=== PATIENT | male | born 1970 ===

== ENCOUNTER 2018-01-30 12:41 | Emergency (ER) | payer BC ==
--- NOTE | 2018-01-30 13:44 | RAD ---
PROCEDURE: Radiographs of the left great toe. TECHNIQUE:: AP radiograph of the left foot, with oblique and lateral view of the left great toe. COMPARISON: None. FINDINGS: BONES: Three views of the left great toe were performed for pain. No fracture is seen. No dislocation of the phalanges is noted. No erosions are noted. Minimal hallux valgus deformity is seen. There may be some mild nonspecific soft tissue swelling. No soft tissue calcification is identified. Remainder of the visualized bones are intact. JOINTS: Unremarkable. SOFT TISSUES: Mild soft tissue swelling. OTHER FINDINGS: None. IMPRESSION: No plain film evidence of fracture or inflammatory arthritis. No soft tissue tophus appreciated.
--- NOTE | 2018-01-30 13:52 | ED PDOC ---
Lower Extremity Pain/Injury Time Seen by Provider: 01/30/18 13:05 Chief Complaint (Nursing): Lower Extremity Problem/Injury Chief Complaint (Provider): Left great toe pain History Per: Patient History/Exam Limitations: no limitations Onset/Duration Of Symptoms: Days (x2) Additional Complaint(s): Mckinley Casiano, a 47 year old male with past medical history of testicular cancer and diabetes, presents to the ED with left great toe pain onset 2 day. Patient states he woke up with acute pain and took celebrex last night which resulted in temporary significant pain improvement but now continues to have pain which prompted the ED visit. He denies trauma to foot, history of gout, fever, chills or night sweats. No further medical complaints. Past Medical History Reviewed: Historical Data, Nursing Documentation, Vital Signs Vital Signs: Last Vital Signs Temp 98.3 F 01/30/18 12:48 Pulse 91 H 01/30/18 12:48 Resp 16 01/30/18 12:48 BP 133/90 01/30/18 12:48 Pulse Ox 96 01/30/18 12:48 - Medical History PMH: Diabetes Denies: CAD, HTN, Hyperlipidemia Other PMH: testicular cancer - Family History Family History: States: Other - Social History Current smoker - smoking cessation education provided: No Alcohol: Occasional Drugs: Denies - Home Medications Home Medications: Ambulatory Orders Medication Instructions Recorded Indomethacin 50 mg PO TID PRN 5 Days capsule 01/30/18 - Allergies Allergies/Adverse Reactions: Allergies Allergy/AdvReac Type Severity Reaction Status Date / Time No Known Allergies Allergy Verified 01/30/18 12:47 Review of Systems ROS Statement: Except As Marked, All Systems Reviewed And Found Negative Constitutional: Negative for: Fever, Chills, Sweats Musculoskeletal: Positive for: Foot Pain (left great toe) Physical Exam - Reviewed Nursing Documentation Reviewed: Yes Vital Signs Reviewed: Yes - Physical Exam Appears: Positive for: Well, Non-toxic, Uncomfortable Head Exam: Positive for: ATRAUMATIC, NORMAL INSPECTION, NORMOCEPHALIC Cardiovascular/Chest: Positive for: Regular Rate, Rhythm Respiratory: Positive for: CNT, Normal Breath Sounds Gastrointestinal/Abdominal: Positive for: Normal Exam, Soft Extremity: Positive for: Normal ROM (antonia flection and extension of toes and ankle bilateral), Other (left foot has mild erythema and edema at left great toe to medial left foot with significant pain with lighth palpation to left great toe, no ulceration or open lesions noted, no discharge or fluctuance) Neurologic/Psych: Positive for: Alert, Oriented - Laboratory Results Result Diagrams: 01/30/18 14:30 01/30/18 14:30 - ECG O2 Sat by Pulse Oximetry: 96 (RA) Medical Decision Making Medical Decision Making: Time: 13:05 Initial Impression: Initial Plan: --CMP --Uric acid --Podiatry consult --CBC w/ differential --Ibuprofen 600 mg PO --Xray left foot great toe time; 13:40 left foot xray IMPRESSION: No plain film evidence of fracture or inflammatory arthritis. No soft tissue tophus appreciated. Case d/w podiatry who recommends f/u in clinic within the next week as indicated Scribe Attestation: Documented by Alice Hemphill, acting as a scribe for Yashira Roberts PA-C. Provider Scribe Attestation: All medical record entries made by the Scribe were at my direction and personally dictated by me. I have reviewed the chart and agree that the record accurately reflects my personal performance of the history, physical exam, medical decision making, and the department course for this patient. I have also personally directed, reviewed, and agree with the discharge instructions and disposition. Disposition - Clinical Impression Clinical Impression: Gout attack - Patient ED Disposition Is Patient to be Admitted: No Counseled Patient/Family Regarding: Studies Performed, Diagnosis, Need For Followup, Rx Given - Disposition Referrals: Arslan Hernandez MD [Family Provider] - Disposition: Routine/Home Disposition Time: 15:45 Condition: STABLE Additional Instructions: Take Indomethacin as needed for the next few days until pain is tolerable. F/u in podiatry clinic Prescriptions: Indomethacin 50 mg PO TID PRN 5 Days capsule PRN Reason: Pain, Moderate (4-7) Instructions: Gout (DC) Forms: [facility] ([place]ian), [facility] ED School/Work Excuse Print Language: BRITISH
[2018-01-30 14:41] LABS: BASO % 0.6 % (0.0-2.0); EOS # 0.2 K/uL (0.0-0.7); EOS % 3.7 % (0.0-4.0); HEMOGLOBIN 15.5 g/dL (12.0-18.0); LYMPH # 1.6 K/uL (1.0-4.3); MEAN CELL VOLUME 83.7 fl (80.0-94.0); MEAN CORPUSCULAR HEMOGLOBIN 26.9 pg (27.0-31.0); MEAN CORPUSCULAR HGB CONC 32.1 g/dL (33.0-37.0); MEAN PLATELET VOLUME 8.3 fl (7.2-11.7); MONO # 0.4 K/uL (0.0-0.8); MONO % 7.5 % (0.0-10.0); NEUT % 57.2 % (50.0-75.0); NRBC % 0.2 % (0.0-0.0); RBC 5.77 Mil/uL (4.40-5.90); RED CELL DISTRIBUTION WIDTH 14.5 % (11.5-14.5); WHITE BLOOD COUNT 5.2 K/uL (4.8-10.8)
[2018-01-30 15:18] LABS: ALB/GLOB RATIO 1.3 (1.0-2.1); ALBUMIN 4.4 g/dL (3.5-5.0); ALT/SGPT 74 U/L (21-72); AST/SGOT 44 U/L (17-59); BLOOD UREA NITROGEN 21 mg/dl (9-20); CALCIUM 9.8 mg/dL (8.4-10.2); GFR NON-AFRICAN AMERICAN > 60; URIC ACID 8.3 mg/Dl (3.5-8.5)
[2018-01-30 16:00] VITALS: BP 130/78; PULSE 78; RESP 18; TEMP 98
[2018-01-31 01:39] VITALS: O2SAT 96
== END 2018-01-30 15:59 | disposition home or self-care (01) ==
LOC: H.ER 12:41
DX: M10.072 Idiopathic gout, left ankle and foot (principal); E11.9 Type 2 diabetes mellitus without complications